=== PATIENT | female | born 1975 | race Caucasian/White ===

== ENCOUNTER 2017-08-28 14:57 | Emergency (ER) | payer OTHER ==
[~2017-08-28] VITALS: Ht 160 cm; Wt 110.0 kg
[~2017-08-28 14:57] MED LIST: CETI10 PO; FLON0.053; Z.0.BCPILL PO; ZOLO100T PO
[2017-08-28 15:01] VITALS: BP 151/85; PULSE 89; RESP 16; TEMP 98.4; O2SAT 97
--- NOTE | 2017-08-28 15:08 | PD ---
HPI Chief Complaint: Dizziness Time Seen by Provider: 15:07 Travel History International Travel<30 days: No Contact w/Intl Traveler<30days: No Traveled to known affect area: No History of Present Illness HPI 42-year-old female came to the emergency room with history of near syncopal episode repeatedly over 1 hour from 1:30 PM to 2:30 PM. Patient says that she had just eaten her lunch and was sitting at her desk at the job when she felt like she was going to pass out. She did not pass out but the feeling kept coming back repeatedly for 4 times. Currently she is feeling fine. 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 Miller. Patient called Dr. Miller's office but she is out of town. The nurse asked her to come to the emergency room to be evaluated. Patient denies any chest pain. Denies any diaphoresis. Vital signs are stable in the emergency room. Denies of any fever or chills or any other symptoms. She was recently started 2 weeks ago on a new psych medication. Her previous psych medication dose was increased as well 2 weeks ago. Her parents are here with her. PFSH Past Medical History Narrative Medical List of her past medical, surgical, social and family history reviewed from the nursing note. Hx Anticoagulant Therapy: Yes (Metprolol) Cancer: No Cardiovascular Problems: Yes (Tachycardia) Diabetes: No Hepatitis: No Hiatal Hernia: No Thyroid Disease: No Past Surgical History Abdominal Surgery: No Cardiac Surgery: No Ear Surgery: No Endocrine Surgery: No Eye Surgery: Yes (LASIK) Genitourinary Surgery: No Gynecologic Surgery: No Oral Surgery: Yes (WISDOM TEETH REMOVED) Pacemaker: No Thoracic Surgery: No Social History Tobacco Use: No Allergies-Medications (Allergen,Severity, Reaction): Coded Allergies: Sulfa (Sulfonamide Antibiotics) (Unverified Allergy, Severe, Shortness of Breath, 08/28/17) HIVES AND CAN'T BREATH AND THROAT TIGHTNESS ibuprofen (Unverified Allergy, Severe, Hives, 08/28/17) HIVES AND FACIAL SWELLING Comments List of her allergies reviewed from the nursing note Reported Meds & Prescriptions Reported Meds & Active Scripts Active Reported Metoprolol Tartrate 50 Mg Tab 50 Mg PO DAILY [ Control] Zyrtec (Cetirizine HCl) 10 Mg Tablet Rexulti (Brexpiprazole) 1 Mg Tab 1 Mg PO DAILY Lexapro (Escitalopram Oxalate) 20 Mg Tab 20 Mg PO DAILY Narrative Medication List of her home medications reviewed from the nursing note. Review of Systems Except as stated in HPI: all other systems reviewed are Neg Neurologic: Positive: Syncope Physical Exam Narrative GENERAL: Awake, alert, obese, anxious SKIN: Focused skin assessment warm/dry. HEAD: Atraumatic. Normocephalic. EYES: Pupils equal and round. No scleral icterus. No injection or drainage. ENT: No nasal bleeding or discharge. Mucous membranes pink and moist. NECK: Trachea midline. No JVD. CARDIOVASCULAR: Regular rate and rhythm. No murmur appreciated. RESPIRATORY: No accessory muscle use. Clear to auscultation. Breath sounds equal bilaterally. GASTROINTESTINAL: Abdomen soft, non-tender, nondistended. Hepatic and splenic margins not palpable. MUSCULOSKELETAL: No obvious deformities. No clubbing. No cyanosis. No edema. NEUROLOGICAL: Awake and alert. No obvious cranial nerve deficits. Motor grossly within normal limits. Normal speech. PSYCHIATRIC: Appropriate mood and affect; insight and judgment normal. Data Data Last Documented VS Vital Signs Date Time Temp Pulse Resp B/P (MAP) Pulse Ox O2 Delivery O2 Flow Rate FiO2 08/28/17 17:18 08/28/17 16:33 71 20 69 20 69 18 08/28/17 15:01 98.4 97 Orders Orders Complete Blood Count With Diff (08/28/17 15:34) Basic Metabolic Panel (Bmp) (08/28/17 15:34) Magnesium (Mg) (08/28/17 15:34) Electrocardiogram (08/28/17 ) Prefabricator / Telemetry [id number] (08/28/17 15:34) ^ Saline Lock (08/28/17 15:34) Orthostatic Vital Signs (08/28/17 15:34) Chest, Pa & Lat (08/28/17 ) Ed Discharge Order (08/28/17 16:47) Labs Laboratory Tests Test 08/28/17 15:57 White Blood Count 6.9 TH/MM3 Red Blood Count 4.79 MIL/MM3 Hemoglobin 12.8 GM/DL Hematocrit 38.2 % Mean Corpuscular Volume 79.8 FL Mean Corpuscular Hemoglobin 26.7 PG Mean Corpuscular Hemoglobin Concent 33.5 % Red Cell Distribution Width 14.5 % Platelet Count 288 TH/MM3 Mean Platelet Volume 8.7 FL Neutrophils (%) (Auto) 56.9 % Lymphocytes (%) (Auto) 28.7 % Monocytes (%) (Auto) 9.9 % Eosinophils (%) (Auto) 3.6 % Basophils (%) (Auto) 0.9 % Neutrophils # (Auto) 3.9 TH/MM3 Lymphocytes # (Auto) 2.0 TH/MM3 Monocytes # (Auto) 0.7 TH/MM3 Eosinophils # (Auto) 0.2 TH/MM3 Basophils # (Auto) 0.1 TH/MM3 CBC Comment DIFF FINAL Differential Comment Blood Urea Nitrogen 9 MG/DL Creatinine 0.86 MG/DL Random Glucose 99 MG/DL Calcium Level 8.5 MG/DL Magnesium Level 2.3 MG/DL Sodium Level 139 MEQ/L Potassium Level 4.1 MEQ/L Chloride Level 107 MEQ/L Carbon Dioxide Level 25.1 MEQ/L Anion Gap 7 MEQ/L Estimat Glomerular Filtration Rate 72 ML/MIN [facility] Medical Decision Making Medical Screen Exam Complete: Yes Emergency Medical Condition: Yes Medical Record Reviewed: Yes Interpretation(s) Twelve-lead EKG was reviewed by me. Normal sinus rhythm, normal axis, nonspecific ST-T wave changes. Heart rate of 62 bpm Differential Diagnosis Cardiac arrhythmia, electrolyte abnormality, dehydration Narrative Course 4:50 PM blood test results are back and within acceptable limit. Chest x-ray is negative. Orthostatic vital signs are negative. Patient has been on the monitor for past almost 2 hours and has not shown any signs of arrhythmia. I am comfortable discharging her home and have her follow-up with her retail support associate. Procedures EKG Prior to Arrival: No Diagnosis Primary Impression: Near syncope Referrals: Primary Care Physician Additional Instructions: Please follow-up with your retail support associate the next couple days. Return to the ER if condition worsens or any other new concerns. Med/Other Pt SpecificInfo: No Change to Meds Disposition: 01 DISCHARGE HOME Condition: Stable Maribell aNjera MD August 28, 2017 15:08
[2017-08-28] MEDS ORDERED: LEXA20TA PO (15:13)
[2017-08-28] MEDS ORDERED: BIRTH CONTROL (15:13)
[2017-08-28] MEDS ORDERED: METO50TA PO (15:13)
[2017-08-28] MEDS ORDERED: CETI-1 (15:13)
[2017-08-28] MEDS ORDERED: BREX1TAB3 PO (15:13)
--- NOTE | 2017-08-28 15:57 | RADRPT ---
EXAM DATE/TIME: 08/28/2017 15:42 [facility] COMPARISON: No previous studies available for comparison. INDICATIONS : Dizziness, lightheaded, and heart palpitations. MEDICAL HISTORY : None. SURGICAL HISTORY : None. ENCOUNTER: Initial ACUITY: 1 day PAIN SCORE: 0/10 LOCATION: Bilateral chest FINDINGS: PA and lateral views of the chest demonstrate the lungs to be symmetrically aerated without evidence of mass, infiltrate or effusion. No evidence of pneumothorax. The cardiomediastinal contours are unr emarkable. Osseous structures are intact. CONCLUSION: No acute cardiopulmonary disease. Jame Conti MD on August 28, 2017 at 15:55 Board Certified Radiologist. This report was verified electronically.
[2017-08-28 16:00] LABS: AUTOMATED NEUTROPHIL # 3.9 TH/MM3 (1.8-7.7); BASOPHIL # 0.1 TH/MM3 (0-0.2); BASOPHIL % 0.9 % (0.0-2.0); EOSINOPHIL # 0.2 TH/MM3 (0-0.4); EOSINOPHIL % 3.6 % (0.0-4.0); HEMATOCRIT 38.2 % (35.0-46.0); HEMOGLOBIN 12.8 GM/DL (11.6-15.3); LYMPH % 28.7 % (9.0-44.0); MEAN CELL VOLUME 79.8 FL (80.0-100.0); MEAN CORPUSCULAR HEMOGLOBIN 26.7 PG (27.0-34.0); MEAN CORPUSCULAR HGB CONC 33.5 % (32.0-36.0); MEAN PLATELET VOLUME 8.7 FL (7.0-11.0); MONO % 9.9 % (0.0-8.0); MONOCYTE # 0.7 TH/MM3 (0-0.9); NEUT % 56.9 % (16.0-70.0); PLATELET COUNT 288 TH/MM3 (150-450); RED BLOOD COUNT 4.79 MIL/MM3 (4.00-5.30); RED CELL DISTRIBUTION WIDTH 14.5 % (11.6-17.2); WHITE BLOOD COUNT 6.9 TH/MM3 (4.0-11.0)
[2017-08-28 16:10] LABS: CALCIUM 8.5 MG/DL (8.5-10.1)
[2017-08-28 16:11] LABS: BICARBONATE 25.1 MEQ/L (21.0-32.0); MAGNESIUM 2.3 MG/DL (1.5-2.5)
[2017-08-28 16:14] LABS: CREATININE 0.86 MG/DL (0.50-1.00)
[2017-08-28 16:33] VITALS: BP_SYST 108; BP_SYST 116; BP_SYST 128; BP_DIAS 62; BP_DIAS 71; BP_DIAS 78; RESP 18; RESP 20
--- NOTE | 2017-08-29 16:26 | EKG ---
Date Performed: 08/28/2017 Time Performed: 15:59:39 PTAGE: 42 years EKG: Sinus rhythm NORMAL ECG NO PREVIOUS TRACING DOCTOR: Luly Art Interpretating Date/Time 08/29/2017 16:21:29
== END 2017-08-28 17:23 | disposition home or self-care (01) ==
LOC: PHED 14:57
DX: R55 Syncope and collapse (principal); Z88.2 Allergy status to sulfonamides; Z88.6 Allergy status to analgesic agent; Z79.899 Other long term (current) drug therapy
CPT/HCPCS: 71046; 80048; 83735; 85025; 93005; 99285